=== PATIENT | male | born 1960 | race Caucasian/White ===

== ENCOUNTER 2021-08-28 15:59 | Emergency (ER) | payer OTHER ==
[2021-08-28 16:28] LABS: HEMOGLOBIN 16.2 gm/dl (14.0-17.5); RED BLOOD COUNT 4.93 M/UL (4.20-5.50); WHITE BLOOD COUNT 7.8 K/UL (4.5-11.0)
[2021-08-28 17:00] LABS: BUN/CREATININE RATIO 12 (0-10)
[2021-08-28] MEDS ORDERED: ZOFRAN ODT 4 MG4 MG PO (19:21)
== END 2021-08-28 19:35 | disposition home or self-care (01) ==
LOC: ER1 15:59
DX: E87.1 Hypo-osmolality and hyponatremia (principal); R10.9 Unspecified abdominal pain; R10.819 Abdominal tenderness, unspecified site; I10 Essential (primary) hypertension; Z90.49 Acquired absence of other specified parts of digestive tract; Z20.822 Contact with and (suspected) exposure to COVID-19
CPT/HCPCS: 0240U; 80053; 81001; 83605; 83690; 85025; 96374; 99284; J2405; Q9967